=== PATIENT | male | born 1960 | race Caucasian/White ===

== ENCOUNTER 2023-07-17 09:08 | Outpatient (CLI) | payer OTHER, MEDICARE, SELFPAY ==
--- NOTE | ~2023-07-17 | MR_ITS ---
MRI of the lumbar spine Clinical History: Radicular pain Technique: Axial T2-weighted images, and sagittal T1-weighted, T2-weighted, and and T2 fat-sat images were acquired. Findings: There is acute compression fracture of L3, with moderate loss of height. No other fracture or subluxation seen. No other bone marrow signal abnormality seen. At L1-L2, there is no disc bulge or herniation. No spinal canal stenosis or neural foraminal narrowin g. At L2-L3, there is minimal disc bulge and mild facet arthropathy. No central canal stenosis. There is minimal bilateral neural foraminal narrowing. L3-L4, there is no disc bulge or herniation. There is mild to moderate facet arthropathy. No central canal stenosis or left neural foraminal narrowing. Minimal right neural foraminal narrowing present. At L4-L5, there is minimal disc bulge and mild facet arthropathy. No central canal stenosis or neural foraminal narrowing. At L5-S1, there is no disc bulge or herniation. No spinal canal stenosis or neural foraminal narrowin g. Paravertebral soft tissues are unremarkable. Impression: Acute compression fracture of L3 with moderate loss of height. Minimal degenerative change, as above. Reviewed, dictated and finalized at [facility]. Impression: Acute compression fracture of L3 with moderate loss of height. Minimal degenerative change, as above.
== END 2023-07-17 09:09 ==
LOC: GOSHIMG 09:10
PROVIDERS: PCP Nurse Practitioner Family; Visit Provider Nurse Practitioner Family
DX: M54.16 Radiculopathy, lumbar region (principal); S32.030A Wedge compression fracture of third lumbar vertebra, initial encounter for closed fracture; X58.XXXA Exposure to other specified factors, initial encounter
CPT/HCPCS: 72148

== ENCOUNTER 2023-08-15 11:41 | Outpatient (CLI) | payer OTHER, MEDICARE, SELFPAY ==
--- NOTE | ~2023-08-15 | XR_ITS ---
3 VIEWS LUMBAR SPINE Ordering provider: Don Ritter, [employer] History: . Age related osteoporosis w current pathol fx vertebra . Comparison: None. FINDINGS: VERTEBRAL BODIES:Vertebroplasty seen in L3 with compression fracture. Otherwise, No visible fracture or subluxation. DISK SPACES: Normal. SOFT TISSUES: Vascular calcifications. IMPRESSION: No acute osseous abnormality lumbar spine. . Vertebroplasty in L3. Reviewed, dictated and finalized at location [facility].
== END 2023-08-15 11:42 ==
PROVIDERS: PCP Nurse Practitioner Family; Visit Provider Nurse Practitioner Family
DX: M80.08XA Age-related osteoporosis with current pathological fracture, vertebra(e), initial encounter for fracture (principal)
CPT/HCPCS: 72110